=== PATIENT | male | born 1950 | race Caucasian/White ===

== ENCOUNTER 2024-01-19 16:33 | Inpatient (IN) | payer MEDICARE, MEDICAID ==
[~2024-01-19] VITALS: Ht 174 cm; Wt 101.5 kg
[2024-01-19 17:43] LABS: ALANINE AMINOTRANSFERASE 22 U/L (12-78); ALBUMIN 2.7 G/DL (3.4-5.0); ALBUMIN/GLOBULIN RATIO 0.6 (1.1-1.5); ALKALINE PHOSPHATASE 90 IU/L (46-116); ANION GAP 12 (8-16); ASPARTATE AMINO TRANSFERASE 15 U/L (10-37); BILIRUBIN,DIRECT 0.3 MG/DL (0-0.3); BLOOD UREA NITROGEN 37 MG/DL (7-18); BUN/CREATININE RATIO 21.9 (10.0-20.0); CALCIUM 8.2 MG/DL (8.5-10.1); CHLORIDE 102 MMOL/L (99-107); CREATININE 1.69 MG/DL (0.60-1.10); GLUCOSE 123 MG/DL (70-104); POTASSIUM 3.9 MMOL/L (3.5-5.1); SODIUM 136 MMOL/L (135-145); TOTAL CARBON DIOXIDE 22.1 MMOL/L (24-32); TOTAL PROTEIN 7.2 G/DL (6.4-8.2); eCRCL 41 ML/MIN; eGFR 40 ML/MIN
[2024-01-19] MEDS: normal saline 1000ml 1,000 ML IV ONE ×3 (18:10→21:18)
[2024-01-19] MEDS: CefTRIAXone 2gm/D5W 50ml BAG 50 ML IV ONE (18:11)
[2024-01-19 18:12] LABS: BASOPHILS % (AUTO) 0.2 % (0-1); EOSINOPHILS # (AUTO) 0.3 X10'3 (0-0.9); EOSINOPHILS % (AUTO) 1.7 % (0-6); HEMOGLOBIN 11.8 g/dl (14.0-17.9); LYMPHOCYTES # (AUTO) 0.2 X10'3 (1.1-4.8); LYMPHOCYTES % (AUTO) 1.3 % (21-51); MEAN CORPUSCULAR HEMOGLOBIN 33.1 PG (27.0-31.0); MEAN CORPUSCULAR HGB CONC 32.8 g/dL (33.0-36.5); MEAN CORPUSCULAR VOLUME 100.8 FL (78-98); MEAN PLATELET VOLUME 9.4 FL (7.4-10.4); MONOCYTES # (AUTO) 0.8 X10'3 (0-0.9); MONOCYTES % (AUTO) 4.9 % (2-12); NEUTROPHILS # (AUTO) 14.5 X10'3 (1.8-7.7); NEUTROPHILS % (AUTO) 91.9 % (42-75); PLATELET COUNT 143 X10'3 (140-440); RED BLOOD COUNT 3.57 X10'6 (4.70-6.10); RED CELL DISTRIBUTION WIDTH 16.3 % (11.5-14.5); WHITE BLOOD COUNT 15.8 X10'3 (4.5-11.0)
[2024-01-19] MEDS ORDERED: potassium Cl 20 mEq SR tablet PO PRN ×2 (18:35)
[2024-01-19] MEDS ORDERED: magnesium 4gm in 100ml NS 100 ML IV PRN (18:35)
[2024-01-19] MEDS ORDERED: magnesium 2GM in 50ml NS 50 ML IV PRN (18:35)
[2024-01-19] MEDS ORDERED: potassium Cl 40MEQ/1/2NS 520ml 520 ML IV PRN (18:35)
[2024-01-19] MEDS ORDERED: morphine 2 MG/ML inj. syringe IV PRN (18:35)
[2024-01-19] MEDS ORDERED: mag hydrox/Alum hydrox/simeth 30ml oral suspension PO PRN (18:35)
[2024-01-19] MEDS ORDERED: magnesium Cl slow-release 64mg tablet PO PRN (18:35)
[2024-01-19] MEDS ORDERED: magnesium hydroxide 30ml (MOM) UD suspension PO PRN (18:35)
[2024-01-19 19:16] LABS: MAGNESIUM 2.1 MG/DL (1.5-2.4); PRO BRAIN NATRIURETIC PEPTIDE 3410 PG/ML (0-125)
[2024-01-19] MEDS: clotrimazole topical cream 15gm tube TP ONE (19:22)
[2024-01-19] MEDS: azithromycin/NS 500mg/250ml 250 ML IV SCH (19:23)
[2024-01-19] MEDS ORDERED: glucagon, human recombinant 1mg kit SUBCUT PRN (19:35)
[2024-01-19] MEDS ORDERED: dextrose 50%-water 50ml dispensing syringe IV PRN ×2 (19:35)
[2024-01-19] MEDS ORDERED: DEXTROSE 15 GM of carb/4 tabs (each vial/BOTTLE has 4 tablets) PO PRN ×2 (19:35)
[2024-01-19 19:38] LABS: STREP A SCREEN POSITIVE (Neg)
[2024-01-19] MEDS: K and/or MAG REPLACEMENT MC SCH (19:43)
[2024-01-19 19:48] LABS: HEMOGLOBIN A1C 5.6 % (4.5-6.2)
[2024-01-19] MEDS: INSULIN LISPRO 100 UNIT/ML INSULN.PEN MULTI-DOSE SQ SCH (19:56)
[2024-01-19 20:01] VITALS: PULSE 96; RESP 19; O2SAT 96
[2024-01-19] MEDS: vancomycin 1,750 MG in NS 350ml IV soln IV ONE (21:10)
[2024-01-19] MEDS: normal saline 1000ml 1,000 ML IV SCH (21:18)
[2024-01-19 21:45] VITALS: BP 112/71; PULSE 96; RESP 20; TEMP 99; O2SAT 97
[2024-01-19 22:00] VITALS: RESP 20; O2SAT 97
[2024-01-19] MEDS ORDERED: GABA-530 PO (22:43)
[2024-01-19] MEDS ORDERED: FLO0.4C (22:43)
[2024-01-19] MEDS ORDERED: MIRA50TA PO (22:43)
[2024-01-19] MEDS ORDERED: AMLO2.5T5 PO (22:43)
[2024-01-19] MEDS ORDERED: CETI10TA14 PO (22:43)
[2024-01-19] MEDS ORDERED: SERT-434 PO (22:43)
[2024-01-19] MEDS ORDERED: FURO20TA4 PO (22:43)
[2024-01-19] MEDS ORDERED: BUPR-564 PO (22:43)
[2024-01-19] MEDS ORDERED: OLME20TA69 PO (22:43)
[2024-01-19] MEDS ORDERED: SERT-433 PO (22:43)
[2024-01-19] MEDS ORDERED: ALEN70TA80 PO (22:43)
[2024-01-19] MEDS ORDERED: SIMV-42 PO (22:43)
[2024-01-19] MEDS ORDERED: OLAN5TAB75 PO (22:43)
[2024-01-19] MEDS: heparin, porcine 5000 units/ml vial SQ SCH (23:52)
[2024-01-19] MEDS: folic acid 1mg tablet PO SCH (23:53)
[2024-01-19] MEDS: cyanocobalamin 500mcg tablet PO SCH (23:53)
[2024-01-19] MEDS: piperacillin/tazo 4.5gm/100ml 100 ML IV SCH (23:54)
[2024-01-20] VITALS (10 sets, daily range): BP systolic 135–151; BP diastolic 70–83; PULSE 88–103; RESP 15–20; TEMP 97.5–98.6; O2SAT 93–96
[2024-01-20] MEDS: insulin glargine (Lantus) pen - multi-dose SQ SCH (00:06)
[2024-01-20] MEDS: docusate sod 100mg capsule PO SCH (00:07)
[2024-01-20] MEDS ORDERED: normal saline 1000ml 1,000 ML IV SCH (02:30)
[2024-01-20 06:44] LABS: BASOPHILS % (AUTO) 0.3 % (0-1); EOSINOPHILS # (AUTO) 0.3 X10'3 (0-0.9); EOSINOPHILS % (AUTO) 2.7 % (0-6); HEMATOCRIT 32.8 % (42.0-52.0); HEMOGLOBIN 10.9 g/dl (14.0-17.9); LYMPHOCYTES # (AUTO) 0.2 X10'3 (1.1-4.8); LYMPHOCYTES % (AUTO) 1.7 % (21-51); MEAN CORPUSCULAR HEMOGLOBIN 33.5 PG (27.0-31.0); MEAN CORPUSCULAR HGB CONC 33.1 g/dL (33.0-36.5); MEAN CORPUSCULAR VOLUME 101.3 FL (78-98); MEAN PLATELET VOLUME 9.1 FL (7.4-10.4); MONOCYTES # (AUTO) 0.6 X10'3 (0-0.9); MONOCYTES % (AUTO) 4.9 % (2-12); NEUTROPHILS # (AUTO) 11.5 X10'3 (1.8-7.7); NEUTROPHILS % (AUTO) 90.4 % (42-75); PLATELET COUNT 132 X10'3 (140-440); RED BLOOD COUNT 3.24 X10'6 (4.70-6.10); RED CELL DISTRIBUTION WIDTH 16.3 % (11.5-14.5); WHITE BLOOD COUNT 12.7 X10'3 (4.5-11.0)
[2024-01-20 06:50] LABS: ALANINE AMINOTRANSFERASE 19 U/L (12-78); ALBUMIN 2.3 G/DL (3.4-5.0); ALBUMIN/GLOBULIN RATIO 0.6 (1.1-1.5); ALKALINE PHOSPHATASE 90 IU/L (46-116); ANION GAP 11 (8-16); ASPARTATE AMINO TRANSFERASE 15 U/L (10-37); BILIRUBIN,TOTAL 0.6 MG/DL (0.1-1.0); BLOOD UREA NITROGEN 36 MG/DL (7-18); BUN/CREATININE RATIO 23.2 (10.0-20.0); CALCIUM 7.6 MG/DL (8.5-10.1); CHLORIDE 105 MMOL/L (99-107); CHOL/HDL RATIO 7.6 (0.00-4.99); CHOLESTEROL 106 MG/DL (0-200); CREATININE 1.55 MG/DL (0.60-1.10); GLUCOSE 100 MG/DL (70-104); HDL CHOLESTEROL 14 MG/DL (35-60); LDL CHOLESTEROL 65 MG/DL (50-100); POTASSIUM 3.8 MMOL/L (3.5-5.1); SODIUM 138 MMOL/L (135-145); TOTAL CARBON DIOXIDE 22.3 MMOL/L (24-32); TOTAL PROTEIN 6.4 G/DL (6.4-8.2); TRIGLYCERIDES 114 MG/DL (20-135); eCRCL 42 ML/MIN; eGFR 44 ML/MIN
[2024-01-20] MEDS ORDERED: non-formulary drug (Alendronate Sodium 1 TAB) PO SCH (07:10)
[2024-01-20] MEDS: normal saline 1000ml 1,000 ML IV SCH (07:25)
[2024-01-20] MEDS: BUPROPION HCL PO SCH (08:00)
[2024-01-20] MEDS: MIRABEGRON PO SCH (08:00)
[2024-01-20] MEDS: furosemide 20MG tablet PO SCH (08:38)
[2024-01-20] MEDS: losartan 50mg tablet PO SCH (08:39)
[2024-01-20] MEDS: gabapentin 100mg capsule PO SCH ×2 (08:39→20:07)
[2024-01-20] MEDS: ipratropium/albuterol 3ml nebule NEB PRN (09:24)
[2024-01-20] MEDS: vancomycin/NS 1 GM ADD-VANTAGE 250 ML IV SCH (09:27)
[2024-01-20 11:48] LABS: BILIRUBIN,URINE NEGATIVE (Neg); COLOR,URINE YELLOW (Yellow); GLUCOSE, URINE NEGATIVE (Neg); KETONES,URINE NEGATIVE (Neg); LEUKOCYTE ESTERASE ,URINE SMALL (Neg); NITRITES, URINE NEGATIVE (Neg); OCCULT BLOOD,URINE MODERATE (Neg); PROTEIN,URINE TRACE mg/dl (Neg); UROBILINOGEN,URINE 0.2 E.U/dL (0.2-1.0)
[2024-01-20 11:56] LABS: CLARITY,URINE SLIGHTLY CLOUDY (Clear); UA COLLECTION TYPE CLN CATCH MIDSTREAM
[2024-01-20 12:00] LABS: BACTERIA,URINE 1+ /HPF (Neg); RBC,URINE 0-2 /HPF (0-2); SQUAMOUS EPITHELIAL CELL,UR FEW /LPF (FEW); WBC CLUMPS,URINE FEW /HPF (NEGATIVE)
[2024-01-20 12:01] LABS: AMORPHOUS URATES 1+; WBC,URINE 20-30 /HPF (0-4)
[2024-01-20] MEDS: Chloraseptic (Phenol) Spray 177ml MM PRN (12:04)
[2024-01-20] MEDS ORDERED: NYSTATIN 30 GM POWDER TP SCH (13:00)
[2024-01-20] MEDS: erythromycin ophthalmic ointment 1gm tube EACHEYE SCH (13:09)
[2024-01-20] MEDS: nystatin 15 GM powder TP SCH (13:09)
[2024-01-20] MEDS: fluconazole 150mg tablet PO SCH (14:30)
[2024-01-20] MEDS: OLANZAPINE 5 MG TABLET PO SCH (21:34)
[2024-01-20] MEDS: sertraline 50mg tablet PO SCH (21:34)
[2024-01-20] MEDS: atorvastatin 10mg tablet PO SCH (21:35)
[2024-01-20] MEDS: acetaminophen 325mg tablet PO PRN (21:35)
[2024-01-20] MEDS: ondansetron/PF 4mg/2ml inj IV PRN (23:12)
[2024-01-21] VITALS (12 sets, daily range): BP systolic 146–171; BP diastolic 68–85; PULSE 81–99; RESP 14–20; TEMP 97.5–98.7; O2SAT 94–99
[2024-01-21] MEDS: cefazolin 2gm/D5W 100mL 100 ML IV SCH ×2 (05:23→13:49)
[2024-01-21] MEDS: buPROPion SR 150mg tablet PO SCH (07:14)
[2024-01-21] MEDS: amLODIPine 2.5mg tablet PO SCH (07:15)
[2024-01-21] MEDS: morphine 2 MG/ML inj. syringe IV PRN (07:38)
[2024-01-21 08:38] LABS: BASOPHILS % (AUTO) 0.2 % (0-1); EOSINOPHILS # (AUTO) 0.5 X10'3 (0-0.9); EOSINOPHILS % (AUTO) 3.9 % (0-6); HEMATOCRIT 33.5 % (42.0-52.0); HEMOGLOBIN 10.9 g/dl (14.0-17.9); LYMPHOCYTES # (AUTO) 0.2 X10'3 (1.1-4.8); LYMPHOCYTES % (AUTO) 1.7 % (21-51); MEAN CORPUSCULAR HEMOGLOBIN 32.8 PG (27.0-31.0); MEAN CORPUSCULAR HGB CONC 32.4 g/dL (33.0-36.5); MEAN CORPUSCULAR VOLUME 101.1 FL (78-98); MEAN PLATELET VOLUME 7.3 FL (7.4-10.4); MONOCYTES # (AUTO) 0.5 X10'3 (0-0.9); MONOCYTES % (AUTO) 4.5 % (2-12); NEUTROPHILS # (AUTO) 10.9 X10'3 (1.8-7.7); NEUTROPHILS % (AUTO) 89.7 % (42-75); PLATELET COUNT 167 X10'3 (140-440); RED BLOOD COUNT 3.31 X10'6 (4.70-6.10); RED CELL DISTRIBUTION WIDTH 16.3 % (11.5-14.5); WHITE BLOOD COUNT 12.1 X10'3 (4.5-11.0)
[2024-01-21 09:00] LABS: ALANINE AMINOTRANSFERASE 31 U/L (12-78); ALBUMIN 2.2 G/DL (3.4-5.0); ALBUMIN/GLOBULIN RATIO 0.5 (1.1-1.5); ALKALINE PHOSPHATASE 134 IU/L (46-116); ANION GAP 7 (8-16); ASPARTATE AMINO TRANSFERASE 19 U/L (10-37); BILIRUBIN,TOTAL 0.5 MG/DL (0.1-1.0); BLOOD UREA NITROGEN 31 MG/DL (7-18); BUN/CREATININE RATIO 22.8 (10.0-20.0); CALCIUM 7.9 MG/DL (8.5-10.1); CHLORIDE 109 MMOL/L (99-107); CREATININE 1.36 MG/DL (0.60-1.10); GLUCOSE 125 MG/DL (70-104); MAGNESIUM 2.1 MG/DL (1.5-2.4); POTASSIUM 3.8 MMOL/L (3.5-5.1); SODIUM 142 MMOL/L (135-145); TOTAL CARBON DIOXIDE 25.6 MMOL/L (24-32); TOTAL PROTEIN 6.7 G/DL (6.4-8.2); eCRCL 48 ML/MIN; eGFR 52 ML/MIN
[2024-01-21] MEDS: mirabegron 25mg ER tablet PO SCH (09:16)
[2024-01-21] MEDS: VANCOMYCIN LEVEL IV ONE (09:17)
[2024-01-21] MEDS ORDERED: iohexol 300mg/ml 100ml inj. ONE (21:56)
[2024-01-22 06:00] VITALS: BP 132/63; PULSE 85; RESP 14; TEMP 97.7; O2SAT 96
[2024-01-22 06:30] LABS: BASOPHILS % (AUTO) 0.3 % (0-1); EOSINOPHILS # (AUTO) 0.6 X10'3 (0-0.9); EOSINOPHILS % (AUTO) 5.9 % (0-6); HEMATOCRIT 30.9 % (42.0-52.0); HEMOGLOBIN 10.2 g/dl (14.0-17.9); LYMPHOCYTES # (AUTO) 0.5 X10'3 (1.1-4.8); LYMPHOCYTES % (AUTO) 5.2 % (21-51); MEAN CORPUSCULAR HEMOGLOBIN 33.6 PG (27.0-31.0); MEAN CORPUSCULAR HGB CONC 33.1 g/dL (33.0-36.5); MEAN CORPUSCULAR VOLUME 101.5 FL (78-98); MEAN PLATELET VOLUME 8.6 FL (7.4-10.4); MONOCYTES # (AUTO) 0.6 X10'3 (0-0.9); MONOCYTES % (AUTO) 6.1 % (2-12); NEUTROPHILS # (AUTO) 7.9 X10'3 (1.8-7.7); NEUTROPHILS % (AUTO) 82.5 % (42-75); PLATELET COUNT 138 X10'3 (140-440); RED BLOOD COUNT 3.05 X10'6 (4.70-6.10); RED CELL DISTRIBUTION WIDTH 16.5 % (11.5-14.5); WHITE BLOOD COUNT 9.6 X10'3 (4.5-11.0)
[2024-01-22 06:37] LABS: ALANINE AMINOTRANSFERASE 25 U/L (12-78); ALBUMIN/GLOBULIN RATIO 0.5 (1.1-1.5); ALKALINE PHOSPHATASE 106 IU/L (46-116); ANION GAP 8 (8-16); ASPARTATE AMINO TRANSFERASE 21 U/L (10-37); BILIRUBIN,TOTAL 0.3 MG/DL (0.1-1.0); BLOOD UREA NITROGEN 32 MG/DL (7-18); BUN/CREATININE RATIO 27.6 (10.0-20.0); CALCIUM 8.4 MG/DL (8.5-10.1); CHLORIDE 107 MMOL/L (99-107); CREATININE 1.16 MG/DL (0.60-1.10); GLUCOSE 88 MG/DL (70-104); MAGNESIUM 2.1 MG/DL (1.5-2.4); SODIUM 140 MMOL/L (135-145); TOTAL PROTEIN 6.3 G/DL (6.4-8.2); eCRCL 57 ML/MIN; eGFR 62 ML/MIN
[2024-01-22 07:42] VITALS: PULSE 82; RESP 19; O2SAT 97
[2024-01-22] MEDS: amLODIPine 5mg tablet PO SCH (08:01)
[2024-01-22 09:00] VITALS: RESP 18; O2SAT 95
[2024-01-22 09:47] VITALS: PULSE 85; RESP 18; O2SAT 98
[2024-01-22 09:48] VITALS: PULSE 84; RESP 18
[2024-01-22 10:00] VITALS: BP 132/63; PULSE 90; RESP 15; TEMP 98.6; O2SAT 92
== END 2024-01-22 17:44 | DRG 871 ==
LOC: ER 16:34 → ED HOLD 18:41 → SUR 3N 21:45
PROVIDERS: ADMIT Family Medicine; ATTEND Family Medicine
DX: A41.9 Sepsis, unspecified organism (principal); J18.9 Pneumonia, unspecified organism; J96.01 Acute respiratory failure with hypoxia; N17.9 Acute kidney failure, unspecified; D53.9 Nutritional anemia, unspecified; E88.09 Other disorders of plasma-protein metabolism, not elsewhere classified; Z20.822 Contact with and (suspected) exposure to COVID-19; I10 Essential (primary) hypertension; E11.9 Type 2 diabetes mellitus without complications; E83.51 Hypocalcemia; J02.0 Streptococcal pharyngitis; L30.4 Erythema intertrigo; F20.9 Schizophrenia, unspecified
CPT/HCPCS: 36415; 70491; 71045; 71250; 80048; 80053; 80061; 80076; 80202; 81001; 82948; 83036; 83605; 83735; 83880; 84145; 85025; 87040; 87081; 87088; 87502; 87503; 87811; 87880; 93005; 94640; 94760; 96365; 97116; 97161; 97530; 97535; 99285; A6212; A6213; A6449; A6590; G0378; J0456; J0690; J0696; J1644; J1815; J2270; J2405; J2543; J3370; J7030; J7040; Q9967

== ENCOUNTER 2025-06-07 15:05 | Emergency (ER) | payer MEDICARE, MEDICAID ==
[~2025-06-07] VITALS: Ht 172.7 cm; Wt 113.0 kg
[~2025-06-07 15:05] MED LIST: ALEN70TA80 PO; AMLO2.5T5 PO; BUPR-480 PO; CETI10TA14 PO; FLO0.4C; FURO20TA4 PO; GABA-530 PO; MIRA50TA PO; OLAN5TAB75 PO; OLME20TA69 PO; SERT-433 PO; SERT-434 PO; SIMV-42 PO
--- NOTE | 2025-06-07 15:51 | Physician Documentation ---
History of Present Illness ~ Chief Complaint: Hypertension Stated Complaint: HYPERTENTION Time Seen by MD: 15:50 HPI This is a 74-year-old male who was transported per EMS from a psychiatric home. Evidently, his blood pressure was found to be elevated in the 180s systolic at the facility. In addition, he was found to be reporting a headache. On exam, the patient denies chills or fever, chest pain or shortness of breath. Medication Reconciliation Allergies: Coded Allergies: No Known Allergies (Unverified , 01/19/24) Scheduled Alendronate Sodium (Alendronate Sodium), 1 TAB PO Q7D, (Reported) Amlodipine Besylate (Amlodipine Besylate), 1 TAB PO DAILY, (Reported) Bupropion HCl (Bupropion Xl), 1 TAB PO DAILY, (Reported) Cetirizine HCl (Cetirizine HCl), 1 TAB PO DAILY, (Reported) Furosemide (Furosemide), 1 TAB PO DAILY, (Reported) Gabapentin (Gabapentin), 1 CAP PO TID, (Reported) Meclizine Hcl (Meclizine Hcl), 1 TAB PO Q8H Mirabegron (Myrbetriq), 1 TAB PO DAILY, (Reported) Olanzapine (Olanzapine), 1 TAB PO HS, (Reported) Olmesartan Medoxomil (Olmesartan Medoxomil), 1 TAB PO DAILY, (Reported) Sertraline HCl (Sertraline HCl), 1 TAB PO DAILY, (Reported) Sertraline HCl (Sertraline HCl), 1 TAB PO HS, (Reported) Simvastatin* (Zocor*), 1 TAB PO HS, (Reported) Tamsulosin Hcl (Flomax), 0.4 HS, (Reported) Past Medical History Patient History: Patient reports no known family medical history. Review of Systems ROS As stated above in the HPI, otherwise all systems are reviewed and negative. Physical Exam Vital Signs: Temperature: 98.1, Source: Oral, Heart Rate: 77, Respiratory Rate: 13, BP: 169/86, Pulse Oximetry: 98, Weight: 113.000 Oxygen Flow Rate: 0 Physical Exam General: Alert, no apparent distress. HEENT: PERRL, EOMI, no injection, moist mucous membranes. Neck: Full range of motion. Respiratory: Lungs clear, no respiratory distress. Chest: No accessory muscle use. Cardiovascular: Regular rate and rhythm, no murmurs. Gastrointestinal: Soft, nontender, nondistended. Bowels sounds present. Extremities: Normal range of motion, no deformity. Neurologic: Oriented x4. Psychiatric: Normal mood and affect. Skin: Normal color, warm and dry. No edema, no ecchymosis. Progress Results/Orders Results/Orders Orders - CARMELITA GANNON [employer] Chest,Single View (06/07/25 15:53) Saline Lock (06/07/25 15:53) Monitor (06/07/25 15:53) Hs Troponin I W Calculations (06/07/25 17:53) Hs Troponin I W Calculations (06/07/25 18:53) Page Hospitalist (06/07/25 ) Normal Saline 1000ml (0.9% Sodium Chlori (06/07/25 16:55) Urinalysis, Cult If Indicated (06/07/25 16:54) Completed Orders - CARMELITA GANNON [employer] Electrocardiogram (06/07/25 ) Cbc/Diff (06/07/25 15:53) MG (06/07/25 15:53) PBNP (06/07/25 15:53) Chest,Single View (06/07/25 15:53) BMP (06/07/25 15:53) Hs Troponin I W Calculations (06/07/25 15:53) Meclizine Tablets (Antivert Tablet) (06/07/25 15:55) Hydrocodone/Apap 5/325mg Tab ([place] 5/32 (06/07/25 15:55) Medications Received in ER Medications (Trade) Dose Ordered Sig/[place] Route PRN Reason Start Time Stop Time Status Last Admin Dose Admin (Antivert tablet) 12.5 mg ONCE ONCE PO 06/07/25 15:55 06/07/25 15:56 DC 06/07/25 16:20 12.5 MG ([place] 5/325mg tablet) 1 tab ONCE ONCE PO 06/07/25 15:55 06/07/25 15:56 DC 06/07/25 16:20 1 TAB Vital Signs 06/07/25 06/07/25 15:32 16:36 Temp 98.1 Pulse 77 85 Resp 13 16 B/P (MAP) 169/86 146/78 (100) Pulse Ox 98 98 O2 Flow Rate 0 0 Laboratory Tests Test 06/07/25 16:04 White Blood Count 5.5 Red Blood Count 3.96 L Hemoglobin 13.8 L Hematocrit 40.5 L Mean Corpuscular Volume 102.3 H Mean Corpuscular Hemoglobin 34.9 H Mean Corpuscular Hemoglobin Concent 34.1 Red Cell Distribution Width 15.1 H Platelet Count 215 Mean Platelet Volume 7.5 Neutrophils (%) (Auto) 63.9 Lymphocytes (%) (Auto) 19.9 L Monocytes (%) (Auto) 10.4 Eosinophils (%) (Auto) 5.2 Basophils (%) (Auto) 0.6 Neutrophils # (Auto) 3.5 Lymphocytes # (Auto) 1.1 Monocytes # (Auto) 0.6 Eosinophils # (Auto) 0.3 Basophils # (Auto) 0.0 CBC Comment Sodium Level 147 H Potassium Level 4.1 Chloride Level 109 H Carbon Dioxide Level 30.1 Anion Gap 8 Blood Urea Nitrogen 24 H Creatinine 1.72 H Estimated GFR/1.73 m2 39 BUN/Creatinine Ratio 14.0 Glucose Level 81 Calcium Level 8.7 Magnesium Level 2.4 Troponin I High Sensitivity 7 Pro-B-Type Natriuretic Peptide 80 Albumin 3.5 Chemistry Comments EKG/XRAY/CT/US/VASC/MRI EKG : Additional Comment 1548 EKG interpreted to show RSR [address] segment elevation. QTC 479 ms. Chest X-Ray : Additional Comments [address] [place] [address] DIAGNOSTIC RADIOLOGY Patient: SONU SHRESTHA Medical Record: [id number] [facility] : 1950, Age: 74 Sex: Male Location: ER Patient Status: REG ER Service Date/Time: 06/07/25/ 3 Ordering Physician: CARMELITA GANNON [employer] Exam: CHEST,SINGLE VIEW CHEST RADIOGRAPH Indication: CP Technique: DI CHEST,SINGLE VIEW Comparison: None FINDINGS: The cardiac silhouette is enlarged. The lungs demonstrate no pulmonary airspace consolidation. The pulmonary vasculature is unremarkable. There is no pleural effusion. There is no pneumothorax. IMPRESSION: No pulmonary airspace consolidation. Cardiomegaly Electronically Signed by:ROD TAM MD Date & Time: 06/07/25 1630 Dictated by: ROD TAM MD Dictation date and time: 06/07/25 1545 Primary Care Provider: NO PRIMARY CARE PROVIDER cc: CARMELITA GANNON [employer] ~ Medical Decision Making Additional information obtaine: old records Findings Last visit here 01/19/24 for RLL PNA. Differential Dx:Considerations: Include other Additional Information Patient found to have TEJAL. Previous creatinine and eGFR from a yr ago 1.16 compared to 1.72 and 39 today. Hydrated with one liter NS IV bolus prior to discharge home. Most Likely Diagnoses 1. Tension-type headache: This is the most common headache disorder in older a dults, often presenting as bilateral, pressing pain without associated features like nausea or photophobia. It is frequently seen in patients with chronic medical conditions such as diabetes and hypertension, and can be exacerbated by stress or poor sleep.[1-2] 2. Migraine (late-onset or pre-existing): Migraine can persist or newly present in older adults, though attacks may be less stereotypical and more likely to be bilateral or associated with aura. A history of similar headaches earlier in life supports this diagnosis, but new-onset migraine in older age warrants careful evaluation for secondary causes.[2-3] 3. Hypertensive headache (non-emergent): Mild to moderate elevations in blood pressure (e.g., systolic in the 160s) can cause headache, especially in patients with poorly controlled hypertension. However, headache is rarely caused by hypertension unless BP is severely elevated or there is evidence of end-organ damage.[2] 4. Medication-related or medication-overuse headache: Regular use or recent ch anges in analgesics, antihypertensives, or other medications can trigger or worsen headache. Medication overuse headache is more common in those with chronic pain or frequent use of acute headache medications.[4] 5. Sinusitis / upper respiratory infection: Sinusitis presents with facial pain, pressure, and sometimes headache, often accompanied by nasal symptoms. It is more likely if there are recent upper respiratory symptoms.[5] 6. Cervicogenic or musculoskeletal headache: Headache originating from the c ervical spine or neck muscles is common in older adults, especially with a history of neck pain or limited mobility. Pain is often unilateral and worsened by neck movement.[6] 7. Ocular strain / refractive error: Age-related changes in vision, such as pre sbyopia or astigmatism, can cause headache, particularly with prolonged visual tasks.[7] Most Important Not to Miss Diagnoses 1. Giant cell (temporal) arteritis: New-onset headache in patients over 50, especially with diabetes or hypertension, requires exclusion of giant cell arteritis. Look for associated symptoms (jaw claudication, scalp tenderness, visual changes) and check ESR/CRP. Prompt diagnosis is critical to prevent vision loss.[8] 2. Intracranial hemorrhage (e.g., subarachnoid or intracerebral): Sudden, severe ("thunderclap") headache, especially with neurological deficits or altered consciousness, warrants immediate neuroimaging to rule out hemorrhage.[9] 3. Acute ischemic stroke or TIA: Headache with new focal neurological symptoms, speech changes, or visual disturbances may indicate stroke or TIA. MRI is preferred for acute evaluation in older adults with vascular risk factors.[10] Departure Time of Disposition: 17:09 Disposition: 01 HOME / SELF CARE / HOMELESS Impression: Primary Impression: Dizzy Additional Impressions: TEJAL (acute kidney injury) Headache Discharge Instructions: Acute Kidney Injury, Adult, Dizziness, General Headache Without Cause, Hypertension, Adult Additional Instructions: Your heart workup was normal in the ER including EKG and troponin and BNP. Referrals: NO PRIMARY CARE PROVIDER (PCP) Prescriptions Meclizine Hcl (MECLIZINE HCL) 12.5 Mg Tablet 1 TAB PO Q8H for dizziness for 10 Days, #30 TAB 0 Refills Prov: CARMELITA GANNON NP 06/07/25 Education Educated: Patient, Family Educated regarding: diagnosis, treatment, prognosis, need for follow up Signature Scribe Signature: x Attestation: The note accurately reflects work and decisions made by me.Carmelita Haider NP 06/07/25 16:00 CARMELITA GANNON NP Jun 07, 2025 15:51
--- NOTE | 2025-06-07 15:55 | ELECTROCARDIOGRAPH REPORT ---
[facility] Test Date: 2025-06-07 Test Time: 15:48:23 Pat Name: SONU SHRESTHA Department: EMERGENCY ROOM Room: Gender: M Heating Mechanic: ENRIQUE : 1950 Requested By: MADELIN GANNON Order Number: [id number] Reading MD: Dr. Nirav Segundo Measurements Intervals [place] Rate: 75 P: 35 [place]: 183 QRS: -66 QRSD: 152 T: 23 QT: 428 QTc: 479 Interpretive Statements Sinus rhythm RBBB and LAFB Electronically Signed On 06-07-2025 18:50:[address] Nirav Segundo Please click the below link to view image of tracing.
[2025-06-07 16:20] LABS: MEAN PLATELET VOLUME 7.5 FL (7.4-10.4); RED CELL DISTRIBUTION WIDTH 15.1 % (11.5-14.5)
[2025-06-07] MEDS: HYDROcodone/acetaminophen 5mg/325mg tablet PO ONE (16:20)
--- NOTE | 2025-06-07 16:28 | RADIOLOGY REPORT ---
CHEST RADIOGRAPH Indication: CP Technique: DI CHEST,SINGLE VIEW Comparison: None FINDINGS: The cardiac silhouette is enlarged. The lungs demonstrate no pulmonary airspace consolidation. The pulmonary vasculature is unremarkable. There is no pleural effusion. There is no pneumothorax. IMPRESSION: No pulmonary airspace consolidation. Cardiomegaly
[2025-06-07 16:34] LABS: CREATININE 1.72 MG/DL (0.60-1.10); PRO BRAIN NATRIURETIC PEPTIDE 80 PG/ML (0-125); TOTAL CARBON DIOXIDE 30.1 MMOL/L (24-32); eCRCL 37 ML/MIN; eGFR 39 ML/MIN
[2025-06-07] MEDS ORDERED: MECL-231 PO (17:10)
[2025-06-07] MEDS: normal saline 1000ml 1,000 ML IV ONE (17:34)
[2025-06-07 18:26] VITALS: BP 144/79; PULSE 89; RESP 18; TEMP 98; O2SAT 98
== END 2025-06-07 18:38 | disposition home or self-care (01) ==
LOC: ER 15:06
DX: R42 Dizziness and giddiness (principal); R51.9 Headache, unspecified; N17.9 Acute kidney failure, unspecified; Z79.899 Other long term (current) drug therapy
CPT/HCPCS: 36415; 71045; 80048; 83735; 83880; 84484; 85025; 93005; 96360; 99285; J7030; J8597